=== PATIENT | female | born 2000 | race Caucasian/White ===

== ENCOUNTER 2021-07-10 13:05 | Observation (INO) | payer MEDICAID ==
[~2021-07-10] VITALS: Ht 170.2 cm; Wt 63.5 kg
== END 2021-07-10 16:40 | disposition home or self-care (01) ==
LOC: 8EST NSY 13:05 → 8 EST A/PP 13:40
PROVIDERS: ADMIT Obstetrics & Gynecology; ATTEND Obstetrics & Gynecology
DX: O36.8130 Decreased fetal movements, third trimester, not applicable or unspecified (principal); Z3A.34 34 weeks gestation of pregnancy
CPT/HCPCS: 59025; 76805; 76818; G0378; 99281